=== PATIENT | female | born 1945 | race Caucasian/White ===

== ENCOUNTER 2021-07-24 15:48 | Emergency (ER) | payer MEDICARE, BC ==
[~2021-07-24] VITALS: Ht 160 cm; Wt 156.5 kg
[2021-07-24] MEDS ORDERED: SYNTHROID88 MCG PO (16:30)
[2021-07-24] MEDS ORDERED: K-TAB ER20 MEQ PO (16:30)
[2021-07-24] MEDS ORDERED: WARFARIN SODIUM10 MG PO (16:30)
[2021-07-24] MEDS ORDERED: TIZANIDINE HCL4 M1 PO (16:32)
[2021-07-24] MEDS ORDERED: CYMBALTA30 MG PO (16:32)
[2021-07-24] MEDS ORDERED: ATIVAN1 MG PO (16:33)
[2021-07-24] MEDS ORDERED: MODAFINIL200 MG PO (16:33)
[2021-07-24] MEDS ORDERED: T SLIM X (16:34)
[2021-07-24] MEDS ORDERED: HYDROCODON-ACE1 EA11 PO (21:04)
== END 2021-07-24 21:26 | disposition home or self-care (01) ==
LOC: ED 15:48
DX: S33.5XXA Sprain of ligaments of lumbar spine, initial encounter (principal); S43.402A Unspecified sprain of left shoulder joint, initial encounter; S83.92XA Sprain of unspecified site of left knee, initial encounter; E11.9 Type 2 diabetes mellitus without complications; Z86.711 Personal history of pulmonary embolism; Z88.7 Allergy status to serum and vaccine; Z79.01 Long term (current) use of anticoagulants; Z79.899 Other long term (current) drug therapy; V00.141A Fall from scooter (nonmotorized), initial encounter
CPT/HCPCS: 72125; 72128; 72131; 73060; 73080; 73560; 96374; 99284-25; A9270; J1170